=== PATIENT | male | born 1995 | race Caucasian/White ===

== ENCOUNTER 2024-01-06 19:21 | Inpatient (IN) | payer OTHER ==
[~2024-01-06] VITALS: Ht 167.6 cm; Wt 65.0 kg
[2024-01-06] MEDS ORDERED: BUPR1FIL7 SL (19:49)
[2024-01-06 22:08] LABS: BASOPHILS % (AUTO) 0.2 % (0.0-2.0); EOSINOPHILS % (AUTO) 0.8 % (1.0-6.0); HEMATOCRIT 37.9 % (41-53); HEMOGLOBIN 12.5 g/dL (13.5-17.5); LYMPHOCYTES # (AUTO) 1.3 K/uL (1.0-4.8); LYMPHOCYTES % (AUTO) 15.9 % (22.0-44.0); MEAN CORPUSCULAR HEMOGLOBIN 29.4 pg (26.0-34.0); MEAN CORPUSCULAR HGB CONC 32.9 G/dL (31.0-37.0); MEAN CORPUSCULAR VOLUME 89 fL (80-100); MONOCYTES # (AUTO) 0.5 K/uL (0.1-1.0); NEUTROPHILS # (AUTO) 6.4 K/uL (1.8-7.7); NEUTROPHILS % (AUTO) 77.1 % (40.0-70.0); PLATELET COUNT (AUTO) 203 K/uL (150-450); RED BLOOD CELL COUNT(AUTO) 4.24 MIL/uL (4.50-5.90); WHITE BLOOD COUNT (AUTO) 8.2 K/uL (4.5-11.0)
[2024-01-06 22:17] LABS: ANION GAP 5 mmol/L (8-16); CALCIUM, TOTAL 9.6 mg/dL (8.8-10.5); CARBON DIOXIDE 30 mmol/L (22-29); CHLORIDE 100 mmol/L (98-107); CREATININE 0.68 mg/dL (0.60-1.30); GLOMERULAR FILTR. RATE CALC > 60 mL/min (>60); GLUCOSE,RANDOM 114 mg/dL (70-110); POTASSIUM 3.9 mmol/L (3.5-5.1); SODIUM SERUM 135 mmol/L (136-145); UREA NITROGEN, BLOOD 13 mg/dL (7-18)
[2024-01-06 22:20] LABS: ALANINE AMINOTRANSFERASE 280 U/L (12-78); ALBUMIN 4.2 g/dL (3.4-5.0); ALKALINE PHOSPHATASE 109 U/L (46-116); ASPARTATE AMINOTRANSFERASE 125 U/L (15-37); BILIRUBIN,TOTAL 0.4 mg/dL (0.1-1.0); LIPASE 17 U/L (16-77); TOTAL PROTEIN, SERUM 8.3 g/dL (6.4-8.2)
[2024-01-06 22:36] LABS: ALCOHOL, BLOOD (SERUM) < 3 mg/dL (0-10)
[2024-01-06] MEDS ORDERED: CloNIDine HCL 0.1 MG TABLET PO PRN (23:00)
[2024-01-06] MEDS ORDERED: LORazepam 2 MG/ML VIAL IVP PRN (23:15)
[2024-01-06] MEDS ORDERED: DICYCLOMINE HCL 10 MG CAPSULE PO PRN (23:15)
[2024-01-06] MEDS ORDERED: METOCLOPRAMIDE HCL 5 MG/ML 2 ML VIAL IVP PRN (23:15)
[2024-01-06] MEDS ORDERED: LOPERAMIDE HCL 2 MG CAPSULE PO PRN (23:15)
[2024-01-06 23:22] LABS: APPEARANCE,URINE CLEAR (CLEAR); BILIRUBIN,URINE NEGATIVE (NEGATIVE); COLOR,URINE YELLOW (YELLOW); GLUCOSE, URINE (UA) NEGATIVE (NEGATIVE); LEUKOCYTE ESTERASE ,URINE NEGATIVE (NEGATIVE); NITRATE,URINE NEGATIVE (NEGATIVE); OCCULT BLOOD,URINE NEGATIVE (NEGATIVE); PH,URINE 7.5 (5.0-8.0); PH,URINE DRUG SCREEN 7.5 (5.0-8.0); PROTEIN,URINE TRACE mg/dL (NEGATIVE); UROBILINOGEN,URINE <=1.0 mg/dL (<=1.0)
[2024-01-06 23:30] LABS: ALCOHOL, URINE DRUG SCREEN NEGATIVE (NEGATIVE); AMPHET/METH SCREEN,URINE NEGATIVE (NEGATIVE); BARBITURATE SCREEN, URINE NEGATIVE (NEGATIVE); BENZODIAZEPINES SCREEN,URINE NEGATIVE (NEGATIVE); CANNABINOID SCREEN,URINE NEGATIVE (NEGATIVE); COCAINE SCREEN,URINE NEGATIVE (NEGATIVE); METHADONE SCREEN, URINE NEGATIVE (NEGATIVE); OPIATE SCREEN,URINE NEGATIVE (NEGATIVE); PHENCYCLIDINE SCREEN,URINE NEGATIVE (NEGATIVE)
[2024-01-06 23:56] LABS: INFLUENZA A-RTPCR,COMBO NEGATIVE (NEGATIVE); INFLUENZA B-RTPCR,COMBO NEGATIVE (NEGATIVE); RESPIRATORY SYNCYTIAL VRS-PCR NEGATIVE (NEGATIVE); SARS COVID19 RTPCR, COMBO NEGATIVE (NEGATIVE)
[2024-01-07 02:05] VITALS: BP 125/75; PULSE 62; RESP 18; TEMP 98.1
[2024-01-07 09:19] VITALS: BP 97/55; PULSE 58; RESP 20; TEMP 97.8
[2024-01-07 19:30] VITALS: BP 106/51; PULSE 53; RESP 19; TEMP 98.1
[2024-01-07] MEDS: TEMAZEPAM 15 MG CAPSULE PO SCH (20:09)
[2024-01-07] MEDS ORDERED: ONDANSETRON HCL 4 MG/2 ML VIAL IVP ONE (21:00)
[2024-01-08 04:16] VITALS: BP 102/65; PULSE 60; RESP 19; TEMP 97.7
[2024-01-08 08:27] VITALS: BP 106/74; PULSE 54; RESP 19; TEMP 97.8
[2024-01-08 21:02] VITALS: BP 125/66; PULSE 75; RESP 19; TEMP 98.1
[2024-01-09 03:57] VITALS: BP 112/63; PULSE 54; RESP 20; TEMP 97.6
[2024-01-09 08:20] VITALS: BP 110/63; PULSE 52; RESP 18; TEMP 97.5
[2024-01-09] MEDS ORDERED: HYDR-4527 PO (12:45)
[2024-01-09 20:17] VITALS: BP 109/61; PULSE 60; RESP 18; TEMP 98.2
== END 2024-01-09 23:35 | DRG 897 ==
LOC: EMS 19:24 → 6S 01-07 01:37
PROVIDERS: ADMIT Internal Medicine; ATTEND Internal Medicine
DX: F11.23 Opioid dependence with withdrawal (principal); E87.1 Hypo-osmolality and hyponatremia; D64.9 Anemia, unspecified; R73.9 Hyperglycemia, unspecified; Z20.822 Contact with and (suspected) exposure to COVID-19; F41.9 Anxiety disorder, unspecified
CPT/HCPCS: 0241U; 80053; 80307; 81003; 83690; 85025; 99285; G0480